=== PATIENT | male | born 1945 | race Hispanic/Latino ===

== ENCOUNTER → 2022-05-28 | Outpatient (CLI) | payer MEDICARE ==
[~2022-05-28] MED LIST: GADOBENATE DIMEGLUMINE 1 ML IV ONE; NAPROXEN; NAPROXEN250 MG PO
[2022-05-28 12:50] LABS: CREATININE, SERUM 1.1 mg/dL (0.72-1.25)
== END ==
LOC: MRI 12:01
PROVIDERS: ATTEND Specialist
DX: M75.122 Complete rotator cuff tear or rupture of left shoulder, not specified as traumatic (principal); R22.32 Localized swelling, mass and lump, left upper limb
CPT/HCPCS: 36415; 73223; 82565; 84520; A9577